=== PATIENT | male | born 1955 | race Two or more races ===

== ENCOUNTER 2021-02-09 16:31 | Inpatient (IN) | payer MEDICAID ==
[~2021-02-09] VITALS: Ht 177.8 cm; Wt 90.2 kg
[2021-02-09 17:30] LABS: Basophils # (auto) 0 10 ^3/uL (0-0.2); Basophils % (auto) 0.2 % (0.0-2.0); Eosinophils # (auto) 0 10 ^3/uL (0-0.8); Mean Corpuscular Hemoglobin 30.6 pg (28.0-32.0)
[2021-02-09 17:31] LABS: Hematocrit 51.2 % (41.0-53.0); Hemoglobin 17.7 g/dL (13.5-17.5); Lymphocytes # (auto) 0.7 10 ^3/uL (0.4-5.4); Lymphocytes % (auto) 4.4 % (10.0-50.0); Mean Corpuscular Hgb Conc. 34.7 g/dL (32.0-36.0); Mean Corpuscular Volume 88.3 fL (80.0-100.0); Monocytes # (auto) 0.7 10 ^3/uL (0-1.3); Monocytes % (auto) 4.1 % (0.0-12.0); Neutrophils # (auto) 15.4 10 ^3/uL (1.6-8.6); Neutrophils % (auto) 91.3 % (37.0-80.0); Red Blood Cells 5.79 10^6/uL (4.5-5.90); White Blood Cell 16.9 10^3/uL (4.4-10.8)
[2021-02-09 17:50] LABS: Albumin 3.9 g/dL (3.4-5.0); Anion Gap 13 (5-15); Blood Urea Nitrogen 18 mg/dL (7-18); Carbon Dioxide 22 mmol/L (21-32); Chloride 103 mmol/L (98-107); Glucose 154 mg/dL (74-106); Magnesium 2.3 mg/dL (1.6-2.6); Potassium 3.3 mmol/L (3.5-5.1); Sodium 138 mmol/L (136-145)
[2021-02-09 17:57] LABS: Alanine Aminotransferase 26 U/L (16-61); Alkaline Phosphatase 72 U/L (45-117); Aspartate Aminotransferase 23 U/L (15-37); BUN/Creatinine Ratio 14.1; Bilirubin, Total 1.9 mg/dL (0.2-1.0); GFR African American 73 mL/min; GFR Non-African American 60 mL/min; Total Protein 8.4 g/dL (6.4-8.2)
[2021-02-09] MEDS ORDERED: SODIUM CHLORIDE 0.9% 1,000 ML IVB ONE (18:15)
[2021-02-09] MEDS ORDERED: cefTRIAXone 1GM/50ML D5W 50 ML IV ONE (18:15)
[2021-02-09 19:23] LABS: Lactic Acid w/Reflex 6.1 mmol/L (0.4-2.0)
[2021-02-09] MEDS ORDERED: POTASSIUM CHL 20 Meq TABLET PO ONE (20:15)
[2021-02-09] MEDS ORDERED: MORPHINE SULF INJ 2 MG/ML SYRINGE 1ML IV PRN (21:00)
[2021-02-09] MEDS ORDERED: NITROGLYCERIN 0.4 MG SL TAB SL PRN (21:00)
[2021-02-09] MEDS: ALBUTEROL SULF HFA 90MCG INH 200DOSE IN SCH (22:00)
[2021-02-09 22:55] VITALS: BP 140/79
[2021-02-09 23:00] VITALS: BP 138/93
[2021-02-10] MEDS: ALBUTEROL SULF HFA 90MCG INH 200DOSE IN SCH (02:00)
[2021-02-10 05:00] VITALS: BP 134/86
[2021-02-10] MEDS ORDERED: ALBUTEROL SULF 2.5 MG/0.5ML(0.5%) NEB SOLN NEB PRN (06:00)
[2021-02-10 06:05] LABS: Basophils # (auto) 0 10 ^3/uL (0-0.2); Basophils % (auto) 0.2 % (0.0-2.0); Eosinophils # (auto) 0 10 ^3/uL (0-0.8); Eosinophils % (auto) 0.1 % (0.0-7.0); Hematocrit 42.9 % (41.0-53.0); Lymphocytes # (auto) 1.6 10 ^3/uL (0.4-5.4); Lymphocytes % (auto) 9.2 % (10.0-50.0); Mean Corpuscular Hemoglobin 30.9 pg (28.0-32.0); Mean Corpuscular Hgb Conc. 34.9 g/dL (32.0-36.0); Mean Corpuscular Volume 88.5 fL (80.0-100.0); Monocytes # (auto) 1.2 10 ^3/uL (0-1.3); Neutrophils # (auto) 14.2 10 ^3/uL (1.6-8.6); Neutrophils % (auto) 83.5 % (37.0-80.0); Red Blood Cells 4.84 10^6/uL (4.5-5.90); Red Cell Distribution Width 16.7 % (11.8-14.3)
[2021-02-10 06:34] LABS: BUN/Creatinine Ratio 18.9; Potassium 3.7 mmol/L (3.5-5.1)
[2021-02-10] MEDS: cefTRIAXone 1GM/50ML D5W 50 ML IV SCH (08:22)
[2021-02-10] MEDS: ENOXAPARIN SOD 40 MG/0.4 ML SYRINGE SC SCH (08:24)
[2021-02-10 08:30] VITALS: BP 152/101
[2021-02-10] MEDS ORDERED: ASCORBIC ACID 500 MG TAB PO SCH (10:00)
[2021-02-10] MEDS ORDERED: ZINC SULFATE 220mg CAP or TAB PO SCH (10:00)
[2021-02-10] MEDS ORDERED: DexAMETHasone SOD PHOS 10MG/1ML VIAL INJ IV SCH (10:00)
[2021-02-10] MEDS ORDERED: CHOLECALCIFEROL (VITD3) 2,000 UNIT CAP/TAB PO SCH (10:00)
[2021-02-10] MEDS: AZITHROMYCIN 500MG/ 250ML 250 ML IV SCH (10:42)
[2021-02-10 10:57] LABS: Urine Bacteria FEW /hpf (None Seen); Urine Blood Negative /uL (Negative); Urine Hyaline Cast FEW /lpf (0 - 2); Urine Mucus FEW (None Seen); Urine Specific Gravity 1.024 (1.001-1.035); Urine WBC 1 /hpf (0 - 3)
[2021-02-10 12:30] VITALS: BP 132/91
[2021-02-10] MEDS ORDERED: ALBUTEROL SULF 2.5 MG/0.5ML(0.5%) NEB SOLN NEB SCH (15:00)
[2021-02-10] MEDS ORDERED: ALPRAZolam 0.5 MG TAB PO PRN (15:30)
[2021-02-10] MEDS ORDERED: HYDROcodone-ACET 5/325MG TAB PO PRN (15:30)
[2021-02-10] MEDS ORDERED: ACETAMINOPHEN 500 MG TAB PO PRN (15:30)
[2021-02-10 17:00] VITALS: BP 145/98
[2021-02-10] MEDS: ALBUTEROL SULF 2.5 MG/0.5ML(0.5%) NEB SOLN NEB SCH (18:00)
[2021-02-10] MEDS: methylPREDNISolone SOD SUCC 40 MG/ML VL IV SCH (21:43)
[2021-02-10 22:00] VITALS: BP 139/89
[2021-02-11] MEDS: ALBUTEROL SULF 2.5 MG/0.5ML(0.5%) NEB SOLN NEB SCH ×4 (00:15→19:51)
[2021-02-11 05:00] VITALS: BP 152/87
[2021-02-11] MEDS: methylPREDNISolone SOD SUCC 40 MG/ML VL IV SCH ×3 (06:16→22:20)
[2021-02-11 06:43] LABS: Basophils # (auto) 0 10 ^3/uL (0-0.2); Basophils % (auto) 0.2 % (0.0-2.0); Eosinophils # (auto) 0 10 ^3/uL (0-0.8); Hematocrit 43.5 % (41.0-53.0); Hemoglobin 14.7 g/dL (13.5-17.5); Lymphocytes # (auto) 0.7 10 ^3/uL (0.4-5.4); Lymphocytes % (auto) 5.4 % (10.0-50.0); Mean Corpuscular Hemoglobin 30.4 pg (28.0-32.0); Mean Corpuscular Hgb Conc. 33.9 g/dL (32.0-36.0); Mean Corpuscular Volume 89.7 fL (80.0-100.0); Monocytes # (auto) 0.5 10 ^3/uL (0-1.3); Neutrophils # (auto) 12.1 10 ^3/uL (1.6-8.6); Neutrophils % (auto) 90.4 % (37.0-80.0); Red Blood Cells 4.86 10^6/uL (4.5-5.90); White Blood Cell 13.3 10^3/uL (4.4-10.8)
[2021-02-11 07:05] LABS: Potassium 3.5 mmol/L (3.5-5.1)
[2021-02-11 07:07] LABS: BUN/Creatinine Ratio 26.2; Calcium 8.5 mg/dL (8.5-10.1)
[2021-02-11] MEDS: cefTRIAXone 1GM/50ML D5W 50 ML IV SCH (08:20)
[2021-02-11] MEDS: ENOXAPARIN SOD 40 MG/0.4 ML SYRINGE SC SCH (08:21)
[2021-02-11 09:28] VITALS: BP 134/100
[2021-02-11] MEDS: AZITHROMYCIN 500MG/ 250ML 250 ML IV SCH (10:31)
[2021-02-11 13:00] VITALS: BP 126/95
[2021-02-11] MEDS ORDERED: IOHEXOL 350 MG/ML 100ML IJ ONE ×2 (14:17→16:05)
[2021-02-11 16:58] VITALS: BP 141/91
[2021-02-11] MEDS ORDERED: LORazepam 2MG/ML-1ML VIAL IV PRN (21:30)
[2021-02-11 22:56] VITALS: BP 156/91
[2021-02-11 23:03] LABS: Albumin 3.1 g/dL (3.4-5.0); Calcium 8.7 mg/dL (8.5-10.1); Potassium 3.2 mmol/L (3.5-5.1)
[2021-02-11 23:07] LABS: BUN/Creatinine Ratio 26.6; Bilirubin, Total 0.6 mg/dL (0.2-1.0); Total Protein 7.6 g/dL (6.4-8.2)
[2021-02-12] MEDS: ALBUTEROL SULF 2.5 MG/0.5ML(0.5%) NEB SOLN NEB SCH ×4 (00:43→12:16)
[2021-02-12 05:00] VITALS: BP_SYST 154; BP_SYST 163; BP_DIAS 104; BP_DIAS 97
[2021-02-12 05:23] VITALS: BP 159/116
[2021-02-12] MEDS: methylPREDNISolone SOD SUCC 40 MG/ML VL IV SCH ×2 (05:45→13:23)
[2021-02-12 06:23] LABS: Alcohol, Urine < 3.0 mg/dL (0-10); Amphetamine Screen, Urine NEGATIVE (NEGATIVE); Barbiturate Scree,Urine NEGATIVE (NEGATIVE); Benzodiazephine Screen, Urine NEGATIVE (NEGATIVE); Cannabinoid Screen, Urine NEGATIVE (NEGATIVE); Cocaine Screen, Urine NEGATIVE (NEGATIVE); Opiate Scree,Urine NEGATIVE (NEGATIVE); Phencyclidine Screen, Urine NEGATIVE (NEGATIVE)
[2021-02-12 06:46] LABS: Basophils # (auto) 0 10 ^3/uL (0-0.2); Basophils % (auto) 0.1 % (0.0-2.0); Eosinophils # (auto) 0 10 ^3/uL (0-0.8); Hematocrit 46.2 % (41.0-53.0); Hemoglobin 15.9 g/dL (13.5-17.5); Lymphocytes % (auto) 7.6 % (10.0-50.0); Mean Corpuscular Hemoglobin 30.7 pg (28.0-32.0); Mean Corpuscular Hgb Conc. 34.4 g/dL (32.0-36.0); Mean Corpuscular Volume 89.4 fL (80.0-100.0); Monocytes # (auto) 0.7 10 ^3/uL (0-1.3); Monocytes % (auto) 5.3 % (0.0-12.0); Neutrophils # (auto) 11.5 10 ^3/uL (1.6-8.6); Red Blood Cells 5.17 10^6/uL (4.5-5.90); Red Cell Distribution Width 16.7 % (11.8-14.3); White Blood Cell 13.3 10^3/uL (4.4-10.8)
[2021-02-12 07:05] LABS: Potassium 3.9 mmol/L (3.5-5.1)
[2021-02-12 07:13] LABS: BUN/Creatinine Ratio 28.7; Calcium 8.9 mg/dL (8.5-10.1)
[2021-02-12] MEDS: cefTRIAXone 1GM/50ML D5W 50 ML IV SCH (08:57)
[2021-02-12] MEDS: ENOXAPARIN SOD 40 MG/0.4 ML SYRINGE SC SCH (08:58)
[2021-02-12 09:00] VITALS: BP 157/97
[2021-02-12] MEDS: AZITHROMYCIN 500MG/ 250ML 250 ML IV SCH (09:35)
[2021-02-12] MEDS ORDERED: ASPirin 81 mg TAB PO SCH (10:00)
[2021-02-12] MEDS ORDERED: FOLIC ACID 1 MG, MULTIPLE VITAMIN 10 ML, MAGNESIUM SULF SDV 50% 8 MEQ, THIAMINE INJ 100... INJ SCH ×5 (12:00)
[2021-02-12] MEDS ORDERED: FOLI1TAB6 PO (12:38)
[2021-02-12] MEDS ORDERED: PRED20TA2 PO (12:38)
[2021-02-12] MEDS ORDERED: ALB5IS NEB (12:38)
[2021-02-12] MEDS ORDERED: THIA100T10 PO (12:38)
[2021-02-12 13:00] VITALS: BP 145/89
[2021-02-12 14:40] VITALS: BP 157/97
[2021-02-13] MEDS ORDERED: FOLIC ACID 1 MG TAB PO SCH (10:00)
[2021-02-13] MEDS ORDERED: THIAMINE HCL 100 MG TAB PO SCH (10:00)
== END 2021-02-12 16:20 | disposition home health service (06) | DRG 133 ==
LOC: EDUNIT# 16:31 → EDBD 16:31 → ER 16:31 → TELE 20:47 → TELE-EAST 22:52
PROVIDERS: ADMIT Hospitalist; ATTEND Hospitalist
DX: J96.01 Acute respiratory failure with hypoxia (principal); G93.41 Metabolic encephalopathy; J10.00 Influenza due to other identified influenza virus with unspecified type of pneumonia; J18.9 Pneumonia, unspecified organism; I67.2 Cerebral atherosclerosis; J44.1 Chronic obstructive pulmonary disease with (acute) exacerbation; E87.6 Hypokalemia; Z20.822 Contact with and (suspected) exposure to COVID-19; J98.11 Atelectasis; F17.200 Nicotine dependence, unspecified, uncomplicated; F41.9 Anxiety disorder, unspecified; H53.2 Diplopia; H57.02 Anisocoria; I10 Essential (primary) hypertension; I25.10 Atherosclerotic heart disease of native coronary artery without angina pectoris; R79.89 Other specified abnormal findings of blood chemistry; J44.0 Chronic obstructive pulmonary disease with (acute) lower respiratory infection; K20.90 Esophagitis, unspecified without bleeding; Z59.0 Homelessness; Z79.82 Long term (current) use of aspirin; Z82.3 Family history of stroke; Z86.73 Personal history of transient ischemic attack (TIA), and cerebral infarction without residual deficits; I25.2 Old myocardial infarction
CPT/HCPCS: 36415; 36600; 70450; 71045; 71275; 80048; 80053; 80061; 80307; 81001; 82805; 83605; 83735; 83880; 84443; 84484; 85025; 85049; 85379; 87040; 87070; 87205; 87426; 92610; 93306; 93886; 93970; 94640; 96361; 96365; 96366; 96375; G0378; J0696; J1100